=== PATIENT | female | born 1975 | race Caucasian/White ===

== ENCOUNTER 2021-01-06 09:09 | Emergency (ER) | payer OTHER ==
[~2021-01-06] VITALS: Ht 167.6 cm; Wt 63.5 kg
[~2021-01-06 09:09] MED LIST: BACTRIM DS TAB1 EACH PO; DOXYCYCLINE MO100 M1 PO; HYDROCODON-ACE1 EA10 PO; HYDROXYZINE PAM25 MG PO; NAPROXEN500 MG PO; OXYCODONE HCL5 MG PO
--- OUTSIDE RECORDS SUMMARY | 2021-01-06 09:12 | XMS ---
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 Pasquale VISIT COUNT (12 MO.) [address] Kofi Burrell TOTAL 2 NOTE: Visits indicate total known visits. ED/UCC VISIT TRACKING (12 MO.) 01/06/2021 09:09 [facility] [place] TYPE: Emergency COMPLAINT: - OD 02/25/2020 14:39 [facility] [place] TYPE: Emergency DIAGNOSES: - rash - Rash and other nonspecific skin eruption INPATIENT VISIT TRACKING (12 MO.) No inpatient visits to display in this time frame [id number]
[2021-01-06] MEDS ORDERED: BUPRENORPHINE HC8 MG SL (09:25)
[2021-01-06] MEDS ORDERED: METOPROLOL SUCC25 MG PO (09:25)
[2021-01-06] MEDS ORDERED: LEVOTHYROXINE50 MC1 PO (09:29)
--- NOTE | 2021-01-06 18:05 | EKG ---
[facility] [address] [facility] [place] [address] Signed Normal sinus rhythm Possible Left atrial enlargement Left anterior fascicular block Anterolateral infarct , age undetermined Abnormal ECG Confirmed by TABATHA BASS MD ([id number]) on 01/06/2021 6:05:20 PM Electronically Signed By: TABATHA BASS MD 01/06/21 1805 PATIENT NAME: JOHNATHAN KRUGER Electrocardiogram DATE OF : 77 PHYSICIAN: TABATHA BASS MD REPORT #: [id number] REPORT IS CONFIDENTIAL AND NOT TO BE RELEASED WITHOUT AUTHORIZATION
--- NOTE | 2021-01-06 18:05 | EKG ---
[facility] [address] [facility] [place] [address] Signed Normal sinus rhythm Possible Left atrial enlargement Left axis deviation Incomplete right bundle branch block Anterolateral infarct , age undetermined Abnormal ECG Confirmed by TABATHA BASS MD ([id number]) on 01/06/2021 6:05:03 PM Electronically Signed By: TABATHA BASS MD 01/06/21 1805 PATIENT NAME: JOHNATHAN KRUGER Electrocardiogram DATE OF : 77 PHYSICIAN: TABATHA BASS MD REPORT #: [id number] REPORT IS CONFIDENTIAL AND NOT TO BE RELEASED WITHOUT AUTHORIZATION
== END 2021-01-06 11:42 | disposition short-term general hospital (02) ==
LOC: ED 09:09
DX: T43.011A Poisoning by tricyclic antidepressants, accidental (unintentional), initial encounter (principal); F17.200 Nicotine dependence, unspecified, uncomplicated; Z88.8 Allergy status to other drugs, medicaments and biological substances; Z91.040 Latex allergy status; Z79.899 Other long term (current) drug therapy; Z20.822 Contact with and (suspected) exposure to COVID-19
CPT/HCPCS: 36600; 51702; 71045; 80053; 81001; 82803; 83605; 83690; 83735; 84703; 85025; 93005; 93010; 94002; 99285-25; C9803; G0480; J2704; J7030; U0003

== ENCOUNTER 2021-04-17 22:08 | Emergency (ER) | payer OTHER ==
[~2021-04-17] VITALS: Ht 167.6 cm; Wt 63.5 kg
[~2021-04-17 22:08] MED LIST changes: +BUPRENORPHINE HC8 MG SL; +LEVOTHYROXINE50 MC1 PO; +METOPROLOL SUCC25 MG PO
--- OUTSIDE RECORDS SUMMARY | 2021-04-17 22:12 | XMS ---
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 Pasquale VISIT COUNT (12 MO.) 2 [facility] TOTAL 2 NOTE: Visits indicate total known visits. ED/UCC VISIT TRACKING (12 MO.) 04/17/2021 22:09 [facility] [place] TYPE: Emergency COMPLAINT: - MEDICATION WITHDRAWAL 01/06/2021 09:09 [facility] [place] TYPE: Emergency COMPLAINT: - OD DIAGNOSES: - Poisoning by tricyclic antidepressants, accidental (unintentional), initial encounter - Latex allergy status - Allergy status to other drugs, medicaments and biological substances - Other retirement (current) drug therapy - Nicotine dependence, unspecified, uncomplicated INPATIENT VISIT TRACKING (12 MO.) No inpatient visits to display in this time frame [id number]
[2021-04-18] MEDS ORDERED: ONDANSETRON ODT4 MG PO (09:19)
== END 2021-04-18 09:35 | disposition home or self-care (01) ==
LOC: ED 22:08
DX: F19.921 Other psychoactive substance use, unspecified with intoxication with delirium (principal); F15.921 Other stimulant use, unspecified with intoxication delirium; M79.7 Fibromyalgia; F17.200 Nicotine dependence, unspecified, uncomplicated; Z91.040 Latex allergy status; Z88.8 Allergy status to other drugs, medicaments and biological substances; Z79.899 Other long term (current) drug therapy
CPT/HCPCS: 80053; 81001; 83690; 83735; 85025; 96374; 96375; 96376; 99284-25; A9270; J1170; J1200; J1630; J2250; J2405; J3360; J3486; J7030

== ENCOUNTER 2022-10-20 11:20 | Emergency (ER) | payer OTHER ==
[~2022-10-20] VITALS: Ht 167.6 cm; Wt 69.6 kg
[~2022-10-20 11:20] MED LIST changes: +ONDANSETRON ODT4 MG PO
--- OUTSIDE RECORDS SUMMARY | 2022-10-20 11:24 | XMS ---
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 E.D. VISIT COUNT (12 MO.) 1 [facility] [place] T[place] 1 NOTE: Visits indicate total known visits. ED/UCC VISIT TRACKING (12 MO.) 10/20/2022 11:22 [facility] [place] TYPE: Emergency COMPLAINT: - DOG BITE, L HAND SWOLLEN INPATIENT VISIT TRACKING (12 MO.) No inpatient visits to display in this time frame [id number]
[2022-10-20] MEDS ORDERED: AMOX TR-K CLV1 EAC1 PO (12:50)
[2022-10-20 13:12] VITALS: BP 134/110
== END 2022-10-20 13:12 | disposition home or self-care (01) ==
LOC: ED 11:20
DX: S61.452A Open bite of left hand, initial encounter (principal); L03.116 Cellulitis of left lower limb; F17.200 Nicotine dependence, unspecified, uncomplicated; W54.0XXA Bitten by dog, initial encounter; Z88.8 Allergy status to other drugs, medicaments and biological substances; Z91.040 Latex allergy status
CPT/HCPCS: 73130